=== PATIENT | female | born 1955 | race Caucasian/White ===

== ENCOUNTER → 2016-09-20 | Day surgery (SDC) | payer OTHER ==
[~2016-09-20] MED LIST: APREPITANT 40 MG CAP ONE; BUPIVACAINE/EPINEPHRINE 0.5% PF 30 ML VIAL ONE; KETOROLAC TROMETHAMINE 30 MG/ML (IVP) VIAL IV PUSH ONE; LACTATED RINGER'S 1000 ML INJ 1,000 ML ONE; LORTA5 PO; MIDAZOLAM HCL 2 MG/2 ML VIAL ONE; ONDANSETRON HCL 4 MG/2 ML VIAL IV PUSH ONE; PROPOFOL 200 MG/20 ML AMP IV ONE; SYNT50TA OR; ceFAZolin INJ 1,000 MG VIAL ONE
--- NOTE | 2016-09-21 18:25 | MP ---
cc: ANDREW STEELE DATE OF SURGERY 09/20/2016 PREOPERATIVE DIAGNOSIS Left knee medial and lateral meniscus tear. POSTOPERATIVE DIAGNOSES Left knee medial and lateral meniscus tear. PROCEDURE Left knee arthroscopic partial medial and lateral meniscectomy. SURGEON Dr. Harini Steele ANESTHESIA General. REVIEW OF SYSTEMS Less than 10 ml. TOURNIQUET TIME Zero minutes. JUSTIFICATION The patient is a 61-year female who injured her left knee. She has had persistent symptoms of pain in regards to her condition with failure of conservative treatment. Clinical exam as well as MRI confirmed the above-named findings. The patient was counseled as to risks, benefits and alternatives to the above-named proposed surgical procedure. She did wish to proceed with surgery. PROCEDURE IN DETAIL A written consent was obtained. The patient was identified by name, taken to the operating room and placed supine on the operating table. General anesthesia was administered as well as 1 gram of IV Ancef. Left thigh was carefully placed in well-padded leg thibodeaux. Left lower extremity prepped and draped using isopropyl alcohol, Hibiclens solution and DuraPrep solution. After a time-out was performed, a standard medial and lateral parapatellar arthroscope portal was established. The patellofemoral joint revealed slight grade 2 chondromalacia. The medial compartment revealed a complex tear of posterior horn of the medial meniscus with unstable meniscal tissue. An arthroscopic biter followed by an arthroscopic shaver was introduced into the medial compartment to perform partial meniscectomy. The meniscal rim was probed and noted to be stable. There was a large 15 x 15 mm area of focal grade 2 chondromalacia at the medial femoral condyle. This was gently debrided with an arthroscopic shaver. The intercondylar notch revealed the anterior posterior cruciate ligaments to be intact. The lateral compartment did reveal a focal 5 x 10 mm area of grade 2 chondromalacia and also a mid body tear of the lateral meniscus. An arthroscopic shaver was introduced into the lateral compartment to perform a partial lateral meniscectomy and again gentle chondroplasty of the lateral femoral condyle. At the conclusion of surgical procedure, 30 mL of 0.5% Marcaine with epinephrine was injected into the knee joint. The arthroscopic portals were closed with 3-0 Prolene suture. Sterile dressing was applied. The patient tolerated the procedure well with no intraoperative complications noted. MD MARICEL Clark/ /9:33 AM /6:18 PM
== END | disposition home or self-care (01) ==
LOC: ESDC 07:03
PROVIDERS: ATTEND Orthopaedic Surgery Sports Medicine
DX: S83.232A Complex tear of medial meniscus, current injury, left knee, initial encounter (principal); S83.282A Other tear of lateral meniscus, current injury, left knee, initial encounter; M94.262 Chondromalacia, left knee
CPT/HCPCS: 01400; 29880; J0690; J1885; J2250; J2405; J3010; J7120; J8501